=== PATIENT | female | born 1995 | race African-American/Black ===

== ENCOUNTER 2017-03-23 17:40 | Emergency (ER) | payer OTHER ==
[~2017-03-23] VITALS: Ht 170.2 cm; Wt 70.0 kg
[~2017-03-23 17:40] MED LIST: DIPH25CA83 PO; FERR-63 PO; IBUP-779 PO; LORA10TA7 PO; MONT10TA24 PO; MULT-1116 PO; PROP50TA3 PO
[2017-03-23] MEDS ORDERED: SODIUM CHLORIDE 0.9% 1,000 ML IV ONE (18:05)
[2017-03-23] MEDS ORDERED: DIPHENHYDRAMINE 50MG/ML VIAL IV ONE (18:15)
[2017-03-23] MEDS ORDERED: KETOROLAC 30MG/ML VIAL IV ONE (18:15)
[2017-03-23 18:23] LABS: BASOPHILS % 0.9 % (0.0-2.0); EOSINOPHILS % 4.3 % (0.0-5.0); HEMATOCRIT. 38.1 % (36.0-48.0); LYMPHOCYTES % 17.6 % (20.0-50.0); MEAN CORPUSCULAR HEMOGLOBIN 31.4 pg (28.0-32.0); MEAN CORPUSCULAR VOLUME 92.2 fL (81.0-99.0); MEAN PLATELET VOLUME 7.8 fl (7.4-10.4); MONOCYTES % 6.2 % (2.0-8.0); PLATELET 296 x1000/uL (130-400); RED BLOOD CELL COUNT 4.13 mill/uL (4.2-5.4); RED CELL DISTRIBUTION WIDTH 13.1 % (11.6-14.6); WHITE BLOOD COUNT 9.6 x1000/uL (4.5-11.0)
[2017-03-23 18:24] LABS: CHLORIDE 107 mEq/L (98-107); INDEX HEMOLYSI 1 (1-3); INDEX ICTERIC 1 (1-4); INDEX LIPEMIC 1 (1-3)
[2017-03-23 18:27] LABS: ANION GAP 13; CALCIUM 8.2 mg/dL (8.5-10.1); CARBON DIOXIDE 28 mEq/L (21-32); UREA NITROGEN BLOOD 20 mg/dL (7-21)
[2017-03-23 18:30] LABS: eGFR > 60 mL/min (>60)
[2017-03-23 18:32] LABS: HCG SCREEN NEGATIVE
[2017-03-23] MEDS ORDERED: HYDROCODONE/ACETAMINOPHEN 5/325MG TABLET PO ONE (19:45)
[2017-03-23 19:50] VITALS: BP 113/72
== END 2017-03-23 21:30 | disposition home or self-care (01) ==
LOC: ER 17:40
DX: R51 Headache (principal); R55 Syncope and collapse; L30.9 Dermatitis, unspecified; E05.90 Thyrotoxicosis, unspecified without thyrotoxic crisis or storm; F32.9 Major depressive disorder, single episode, unspecified; Z79.899 Other long term (current) drug therapy; Z91.010 Allergy to peanuts
CPT/HCPCS: 36415; 70450; 80048; 82962; 84703; 85025; 93005; 96361; 96374; 96375; 99285; J1200; J1885; J7030; Z7610